=== PATIENT | male | born 1940 | race Caucasian/White ===

== ENCOUNTER 2024-06-27 08:31 | Inpatient (IN) | payer OTHER, SELFPAY ==
[2024-06-07 13:51] VITALS: BMI 29.6
[2024-06-07 14:53] LABS: Hematocrit 36.7 % (39.0-52.0); Hemoglobin 12.5 g/dL (13.0-18.0); Mean Corp Hgb Conc. 34.1 g/dL (33.0-37.0); Mean Corpuscular Hgb 33.3 pg (27.0-31.0); Mean Corpuscular Volume 97.9 fL (80.0-94.0); Mean Platelet Volume 12.4 fL (7.4-10.4); Platelet Count 230 10^3/uL (130-400); Red Blood Cell Count 3.75 10^6/uL (4.70-6.10); Red Cell Dist. Width 12.8 % (11.5-14.5); White Blood Cell Count 8.7 10^3/uL (4.8-10.8)
[2024-06-07 15:05] LABS: ALT (SGPT) 17 U/L (0-50); AST (SGOT) 19 U/L (17-59); Albumin 4.4 g/dl (3.5-5.0); Alkaline Phosphatase 59 U/L (38-126); Blood Urea Nitrogen 32 mg/dl (9-20); Calcium 9.6 mg/dl (8.4-10.2); Carbon Dioxide 27 mmol/L (22-30); Chloride 100 mmol/L (98-107); Estimated Creatinine Clearance 60 ml/min; Glucose 155 mg/dl (70-99); Potassium 4.8 mmol/L (3.5-5.1); Sodium 137 mmol/L (135-145); Total Bilirubin 0.7 mg/dl (0.2-1.3); Total Protein 6.9 g/dl (6.3-8.2); eGFR > 60.00
[2024-06-08 09:25] LABS: Glycohemoglobin (HgbA1c) 8.2 % (4.0-5.6)
[2024-06-21 10:36] VITALS: BMI 29.6
[2024-06-21 11:20] VITALS: BMI 29.6
--- NOTE | 2024-06-21 16:49 | PTCARENOTE ---
HgA1c 8.2, Radha at Dr. Sanderson office made aware.
[2024-06-27] VITALS (13 sets, daily range): BP systolic 115–147; BP diastolic 55–94; PULSE 71; O2SAT 98; BMI 29.6
[2024-06-27] MEDS: TYLENOL 650 MG PO ×4 (08:20→23:00)
[2024-06-27] MEDS: CELEBREX 200 MG PO (08:21)
[2024-06-27 08:38] LABS: Glucose - Point of Care 194 mg/dl (70-99)
[2024-06-27 10:28] LABS: Glucose - Point of Care 166 mg/dl (70-99)
[2024-06-27 12:51] LABS: Glucose - Point of Care 120 mg/dl (70-99)
--- NOTE | 2024-06-27 13:46 | W.PN.ORTHO ---
Today's Communication / Plan
-
D/c when clinically stable.
Assessment
.
Distal Motor Intact: Yes
Dressing:
Clean, dry and intact.
Assessment:
L knee OA s/p L TKA w/ Dr Sanderson 06/27/24
-�s/p R TKA 02/2009
DVT prophylaxis - Eliquis at modified dosing, b/l venous foot pumps
- Will resume home Eliquis dosing POD 3 if hemodynamically stable
HTN - + parameters - monitor BP
PAF (post esophageal variceal procedure)/frequent PVCs � monitor on tele
- Continue BB
- Eliquis as stated above
Chronic systolic HF and NICM s/p DC ICD 2016 (EF 45-50%) - reduce hourly IVF to prevent fluid overload
- Resume Lasix w/ BP parameters to prevent post-surgical hypotension
COPD and pulm nodules - monitor O2
- IS
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
- Resume home meds
- SSI
- NO STEROIDS post-op
- Will benefit from Cefadroxil post-op
GERD and Rios�s esophagus - continue PPI therapy
BPH w/ LUTS - monitor voids
- Add Flomax while inpatient
HLD
Mild valvular disease
Renal cysts
Cervical stenosis
Hyperthyroidism s/p total thyroidectomy 2012
Post-surgical hypothyroidism
Chronic anemia
Tinnitus
Plan
.
Surgery / Date: L TKA w/ Dr Sanderson 06/27/24
DVT Prophylaxis: Other (Eliquis )
Activity:
Out of bed.
PT/OT
Discharge Plan: Home w/ Outpatient PT
Subjective
.
.:
Patient resting comfortably in PACU.
L knee pain minimal and currently well tolerated.
Denies any new significant complaints.
Vital Signs and Labs
.
Vital Signs and Labs:
Lab Results
06/07/24 13:46
06/07/24 13:46
Physical Exam
-
HEENT: No pallor, cyanosis, or jaundice. Throat clear.
NECK: Supple. No JVD.
RESPIRATORY: Lungs clear to auscultation.
CVS: S1, S2 normal. RRR.
ABDOMEN: Soft, non-tender. No distension.
EXTREMITIES: Strength equal, no calf pain with palpation/dorsiflexion. Calves soft.
RETAIL SERVICE REPRESENTATIVE: AOx3. No focal deficits. interactive web developer grossly intact
[2024-06-27] MEDS: ROXICODONE 5 MG PO ×2 (14:02→23:00)
--- NOTE | 2024-06-27 14:28 | PTCARENOTE ---
Patient admitted from Pacu post left total knee replacement.The patient reports his pain at a 3 out of 10.Neurovascular assessment is within normal limits and ongoing.He still does not have complete feeling back bilaterally as only able to push/pull
minimally.Vital signs are stable.The patient is in his bed with the call geronimo in reach.
[2024-06-27] MEDS: NORMOSOL-R/PLASMALYTE-A 1000 IV (15:26)
[2024-06-27] MEDS: TYLENOL PO (15:32)
[2024-06-27] MEDS: FLOMAX 0.4 MG PO (15:33)
[2024-06-27] MEDS: PROTONIX 20 MG PO ×2 (15:33→20:03)
[2024-06-27] MEDS: LIPITOR 40 MG PO (15:34)
[2024-06-27] MEDS: PROSCAR 5 MG PO (15:35)
[2024-06-27] MEDS: NOVOLOG FLEXPEN-MODERATE RESISTANCE SC (15:35)
[2024-06-27 16:34] LABS: Glucose - Point of Care 189 mg/dl (70-99)
[2024-06-27] MEDS: NOVOLOG FLEXPEN-MODERATE RESISTANCE 1 UNITS SC (17:44)
[2024-06-27] MEDS: ANCEF 5 IV (17:45)
[2024-06-27] MEDS: GLUCOTROL XL (EXTENDED RELEASE) PO (18:24)
[2024-06-27] MEDS: GLUCOPHAGE XR EXTENDED RELEASE 2000 MG PO (18:30)
[2024-06-27] MEDS: JANUVIA 100 MG PO (18:30)
[2024-06-27] MEDS: ELIQUIS 2.5 MG PO (20:03)
[2024-06-27] MEDS: BACTROBAN 2% OINTMENT 1 APPLIC NASAL (20:04)
[2024-06-27] MEDS: COREG 37.5 MG PO (20:06)
[2024-06-27] MEDS: NEURONTIN 300 MG PO (21:55)
[2024-06-28] MEDS: ANCEF 5 IV (00:07)
[2024-06-28 03:44] VITALS: BP 132/69
[2024-06-28] MEDS: TYLENOL 650 MG PO ×3 (05:00→11:49)
[2024-06-28] MEDS: SYNTHROID 175 MCG PO (05:09)
[2024-06-28] MEDS: ROXICODONE 10 MG PO (05:15)
[2024-06-28 07:25] LABS: Glucose - Point of Care 211 mg/dl (70-99)
[2024-06-28 08:00] VITALS: BP 116/67
[2024-06-28] MEDS: NEURONTIN 100 MG PO (08:00)
[2024-06-28] MEDS: FLOMAX 0.4 MG PO (08:00)
[2024-06-28] MEDS: NOVOLOG FLEXPEN-MODERATE RESISTANCE 3 UNITS SC (08:00)
[2024-06-28] MEDS: ELIQUIS 2.5 MG PO (08:01)
[2024-06-28] MEDS: PROSCAR 5 MG PO (08:01)
[2024-06-28] MEDS: COREG 37.5 MG PO (08:03)
[2024-06-28] MEDS: LIPITOR 40 MG PO (08:03)
[2024-06-28] MEDS: GLUCOTROL XL (EXTENDED RELEASE) 20 MG PO (08:03)
[2024-06-28] MEDS: BACTROBAN 2% OINTMENT 1 APPLIC NASAL (08:05)
[2024-06-28] MEDS: PROTONIX 20 MG PO (08:06)
[2024-06-28 10:29] VITALS: BP 128/67; PULSE 65; O2SAT 99
--- NOTE | 2024-06-28 11:03 | W.PN.ORTHO ---
Today's Communication / Plan
-
Await PT recs. Pt did well w/ OT.
D/c later today if remaining clinically stable.
Assessment
.
Distal Motor Intact: Yes
Dressing:
Small areas of old incisional bleeding.
Assessment:
L knee OA s/p L TKA w/ Dr Sanderson 06/27/24
-�s/p R TKA 02/2009
DVT prophylaxis - Eliquis at modified dosing, b/l venous foot pumps
- Will resume home Eliquis dosing POD 3 since hemodynamically stable
HTN - + parameters - BP readings overall stable
PAF (post esophageal variceal procedure)/frequent PVCs � rhythm stable on tele
- Continue BB
- Eliquis as stated above
Chronic systolic HF and NICM s/p DC ICD 2016 (EF 45-50%) - reduced hourly IVF to prevent fluid overload
- Resumed Lasix w/ BP parameters to prevent post-surgical hypotension
- No s/sx of acute CHF
COPD and pulm nodules - O2 stable on RA
- IS
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
- Do expect BS readings to improve further w/ resumption of home meds, continuation of diabetic/carb controlled diet
- NO STEROIDS post-op
- Will benefit from Cefadroxil post-op
GERD and Rios�s esophagus - continue PPI therapy
BPH w/ LUTS - voiding appropriately w/ added Flomax while inpatient
HLD
Mild valvular disease
Renal cysts
Cervical stenosis
Hyperthyroidism s/p total thyroidectomy 2012
Post-surgical hypothyroidism
Chronic anemia
Tinnitus
Plan
.
Surgery / Date: L TKA w/ Dr Sanderson 06/27/24
DVT Prophylaxis: Other (Eliquis )
Activity:
Out of bed.
PT/OT
Discharge Plan: Home w/ Outpatient PT
Subjective
.
.:
Patient resting comfortably in his chair.
L knee pain tolerable w/ minimal pain meds.
Denies any new significant complaints.
Eager for potential d/c today.
Vital Signs and Labs
.
Vital Signs and Labs:
Lab Results
06/07/24 13:46
06/07/24 13:46
Temp Pulse Resp BP Pulse Ox
97.9 F 66 18 116/67 99
06/28/24 08:00 06/28/24 08:03 06/28/24 08:00 06/28/24 08:03 06/28/24 08:00
Non-invasive Hgb result: 13.1
Physical Exam
-
HEENT: No pallor, cyanosis, or jaundice. Throat clear.
NECK: Supple. No JVD.
RESPIRATORY: Lungs clear to auscultation.
CVS: S1, S2 normal. RRR.�
ABDOMEN: Soft, non-tender. No distension.
EXTREMITIES: Expected post-surgical L knee edema. Strength equal, no calf pain with palpation/dorsiflexion. Calves soft.
SLIDER ASSEMBLER: AOx3. No focal deficits. toll repairer central office grossly intact
--- NOTE | 2024-06-28 11:03 | CM ---
Addendum entered by Precious San 06/28/24 12:47:
Unable to get to outpatient PT - daughter request home home in the interim until he can start outpatient PT
Options reviewed - [facility] preferred. Referral placed in [facility].
[facility] liaison
PLAN: Home with home health
Daughter to transport.
Addendum entered by Precious San 06/28/24 11:27:
IMM explained & signed. In chart
Original Note:
Met with patient at bedside.
IA COMPLETED. CASE MANAGEMENT CONSULT COMPLETED.
Lives at [facility] alone, no steps
Patient has outpatient PT scheduled.
PLAN: Outpatient therapy
daughter to metal pickling equipment operator
--- NOTE | 2024-06-28 11:10 | W.DS.TRANS ---
Addendum entered and electronically signed by Toya Davison PA-C 06/28/24 12:44:
Pt's original plan was d/c home w/ outpatient PT; however, per his daughter Toya, he will not have adequate transportation for the first few weeks. Given this, the patient will start w/ [facility] and home PT w/ an eventual transition to outpatient PT.
Original Note:
DC Summary - Platform Architect
-
Discharge Instructions:
Sleep Apnea Risk Intermediate
Discharge Diagnosis/Procedures L knee OA s/p L TKA w/ Dr Sanderson 06/27/24
Diet Diabetic, Carb Controlled
Activity As tolerated,With Walker
Driving Restrictions Not until seen by your Dr
Bathing Restrictions OK to Shower
Other Services PT
Wound Care Dressing to be removed 1 week post-surgery
Specialty Instructions Weigh Daily
Instructions:
Stand-Alone Forms: Total Hip/Knee Replacement D/C
Changes to Home Medications: Yes
Discharge Medications:
DC Medications w/original date entered in [employer]
apixaban 5 mg tablet (Eliquis) 5 mg PO BID Blood Clot Prevention/Tx 06/21/24
atorvastatin 40 mg tablet 40 mg PO DAILY High Cholesterol 06/21/24
carvedilol 25 mg tablet 37.5 mg PO BID Blood Pressure 06/21/24
empagliflozin 10 mg tablet (Jardiance) 10 mg PO DAILY Diabetes 06/21/24
empagliflozin 25 mg tablet (Jardiance) 25 mg PO DAILY Diabetes 06/21/24
finasteride 5 mg tablet 5 mg PO DAILY BPH 06/21/24
gabapentin 100 mg capsule 100 mg PO DAILY Pain 06/21/24
gabapentin 100 mg capsule 300 mg PO HS Pain 06/21/24
glipizide 10 mg tablet, extended release 24 hr 20 mg PO DAILY Diabetes 06/21/24
levothyroxine 175 mcg tablet (Synthroid) 175 mcg PO DAILY Thyroid 06/21/24
multivitamin 1 tab PO DAILY Supplement 06/21/24
omeprazole 20 mg tablet,delayed release 20 mg PO BID GERD 06/21/24
sitagliptin phos 50 mg-metformin ER 1,000 mg tablet,extend rel 24h mp (Janumet XR) 2 tab PO QPM Diabetes 06/21/24
Saccharomyces boulardii 250 mg capsule (Florastor) 250 mg PO BID #14 caps 06/27/24
acetaminophen 500 mg tablet (Tylenol Extra Strength) 1,000 mg (2 x 500 mg) PO Q6H #60 tabs 06/27/24
apixaban 2.5 mg tablet (Eliquis) 2.5 mg PO BID #3 tabs 06/27/24
cefadroxil 500 mg capsule 500 mg PO BID #14 caps 06/27/24
docusate sodium 100 mg capsule 100 mg PO BID #30 caps 06/27/24
furosemide 20 mg tablet 10 mg (1/2 x 20 mg) PO DAILY #0 tabs 06/27/24
olmesartan 40 mg tablet 40 mg PO DAILY #1 tab 06/27/24
oxycodone 5 mg tablet 5 - 10 mg (1 - 2 x 5 mg) PO Q6H PRN moderate-severe pain #30 tabs 06/27/24
prochlorperazine maleate 5 mg tablet 5 mg PO Q8HPRN PRN nausea/vomiting #30 tabs 06/27/24
sennosides 8.6 mg tablet (Senna Laxative) 17.2 mg (2 x 8.6 mg) PO BID #30 tabs 06/27/24
Home Medication Changes
Saccharomyces boulardii 250 mg capsule (Florastor) 250 mg PO BID #14 caps 06/27/24
acetaminophen 500 mg tablet (Tylenol Extra Strength) 1,000 mg (2 x 500 mg) PO Q6H #60 tabs 06/27/24
apixaban 2.5 mg tablet (Eliquis) 2.5 mg PO BID #3 tabs 06/27/24 - until POD 3; then resume Eliquis 5 mg PO BID
cefadroxil 500 mg capsule 500 mg PO BID #14 caps 06/27/24
docusate sodium 100 mg capsule 100 mg PO BID #30 caps 06/27/24
oxycodone 5 mg tablet 5 - 10 mg (1 - 2 x 5 mg) PO Q6H PRN moderate-severe pain #30 tabs 06/27/24
prochlorperazine maleate 5 mg tablet 5 mg PO Q8HPRN PRN nausea/vomiting #30 tabs 06/27/24
sennosides 8.6 mg tablet (Senna Laxative) 17.2 mg (2 x 8.6 mg) PO BID #30 tabs 06/27/24
Pending Results: No
[2024-06-28 12:00] VITALS: BP 126/64
[2024-06-28 12:19] VITALS: BP 137/72; PULSE 56; O2SAT 100
--- NOTE | 2024-06-28 13:08 | VNURNOTE ---
Home Health Liaison met with patient and daughter at bedside to discuss [facility] nurse/therapy, visits, schedule and homebound status. Patient is agreeable and understands that visits at home will be 2-3 x per week to assess and teach medical management
and home PT.
[facility] brochure provided with contact information. Patient is aware that [facility] will contact them for start of care in 1-2 days after discharge from .
[facility] referral accepted in [facility].
== END 2024-06-28 13:32 | disposition home health service (06) | DRG 470 ==
LOC: 2 SOUTH 08:31
PROVIDERS: ADMITTING PHYSICIAN Specialist; FAMILY PHYSICIAN Family Medicine; REFERRING PHYSICIAN Internal Medicine Cardiovascular Disease
PROC: 0SRD0J9 Replacement of Left Knee Joint with Synthetic Substitute, Cemented, Open Approach (ICD-10-PCS; 2024-06-27)
DX: M17.12 Unilateral primary osteoarthritis, left knee (principal); I42.8 Other cardiomyopathies; I50.22 Chronic systolic (congestive) heart failure; I48.0 Paroxysmal atrial fibrillation; E78.00 Pure hypercholesterolemia, unspecified; I11.0 Hypertensive heart disease with heart failure; E89.0 Postprocedural hypothyroidism; E11.40 Type 2 diabetes mellitus with diabetic neuropathy, unspecified; I49.3 Ventricular premature depolarization; I08.1 Rheumatic disorders of both mitral and tricuspid valves; J44.9 Chronic obstructive pulmonary disease, unspecified; N40.1 Benign prostatic hyperplasia with lower urinary tract symptoms; K21.9 Gastro-esophageal reflux disease without esophagitis; K22.70 Barrett's esophagus without dysplasia; D64.9 Anemia, unspecified; Z96.651 Presence of right artificial knee joint; Z87.891 Personal history of nicotine dependence; Z95.810 Presence of automatic (implantable) cardiac defibrillator; Z79.84 Long term (current) use of oral hypoglycemic drugs; Z79.01 Long term (current) use of anticoagulants; Z79.890 Hormone replacement therapy; Z79.899 Other long term (current) drug therapy
CPT/HCPCS: 36415; 73560; 80053; 82962; 83036; 85027; 87070; 97110; 97116; 97162; 97166